=== PATIENT | female | born 2000 | race Caucasian/White ===

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

== ENCOUNTER → 2021-01-28 15:28 | Outpatient (CLI) | payer BC, SELFPAY ==
--- NOTE | ~2021-01-28 | US_ITS ---
US breast LT complete INDICATION: Pulling sensation in left breast TECHNIQUE: Dedicated left breast ultrasound COMPARISON: No prior studies for comparison. FINDINGS: The left breast is composed of normal heterogeneous echotexture without focal solid or cyst ic mass. IMPRESSION: 1: Normal left breast ultrasound. BI-RADS CATEGORY 1 - NEGATIVE Reviewed, dictated and finalized at location A.
== END ==
PROVIDERS: Visit Provider Nurse Practitioner
DX: N64.89 Other specified disorders of breast (principal)
CPT/HCPCS: 76641

== ENCOUNTER 2022-02-23 10:12 | Emergency (ER) | payer BC, SELFPAY ==
--- NOTE | ~2022-02-23 | US_ITS ---
EXAMINATION: US pelvic complete w TV DATE: 02/23/2022 11:44 INDICATION: Uterine bleeding Comparison:No prior studies for comparison. TECHNIQUE: Multiple transabdominal and endovaginal sonographic images of the pelvis performed. FINDINGS: The uterus measures 6.2 x 3.8 x 4.6 cm. The endometrial complex measures 10 mm. Endometrium is heterogeneous. The right ovary measures 2.7 x 1.8 x 1.8 cm and the left ovary measures 2.5 x 1.7 x 1.8 cm. There ar e small follicles in each ovary. Normal doppler signal in both ovaries. There is no free fluid in the pelvis. There are no abnormal masses seen on either side. IMPRESSION: 1. Mildly heterogeneous endometrium measuring 10 mm. Otherwise, unremarkable pelvic ultrasound. Reviewed, dictated and finalized at location B. IMPRESSION: 1. Mildly heterogeneous endometrium measuring 10 mm. Otherwise, unremarkable pe lvic ultrasound.
[2022-02-23 11:00] VITALS: BP 151/87; PULSE 80; RESP 16; TEMP 36.9; O2SAT 98
--- NOTE | 2022-02-23 11:04 | ED.GENADULT ---
HPI - General Adult General Chief complaint: Vaginal Bleeding Stated complaint: heavy menses, abd pain Time Seen by Provider: 02/23/22 10:46 Source: RN notes reviewed History of Present Illness HPI narrative: Patient presents emergency department from home for uterine bleeding. Patient states that she has been having heavy vaginal bleeding for the past 3 days. States she has a history of PCOS and is followed at [facility] states that this bleeding is heavier than normal states is associated with cramping in the lower abdomen she states that she has not taking pain medication today for the symptoms she denies any fevers or chills dizziness shortness of breath or any other symptoms of concern Related Data Home Medications Medication Instructions Recorded Confirmed sertraline 100 mg tablet (Zoloft) 100 mg PO DAILY 02/05/21 02/26/21 lisdexamfetamine 70 mg capsule mg 02/23/22 02/23/22 (Vyvanse) Allergies Allergy/AdvReac Type Severity Reaction Status Date / Time No Known Allergies Allergy Verified 02/23/22 11:08 Review of Systems Review of Systems: Gen.: Denies fevers or chills ENT: Denies congestion Respiratory: Denies shortness of breath or cough CV: Denies chest pain or palpitations GI: Reports lower abdominal pain, denies nausea, emesis or diarrhea see HPI Musculoskeletal: Denies back pain or muscle pain Neuro: Denies numbness, tingling, weakness or focal weakness Skin: Denies rash Except as documented, all other systems reviewed and negative PMFSH Past Medical History Medical History Binge-eating and purging type anorexia nervosa PCOS (polycystic ovarian syndrome) Surgical History Surgical History S/P cholecystectomy S/P ear surgery S/P tonsillectomy Family History Family History Father Diabetes mellitus Grandparent Family history of malignant neoplasm of breast Mother Heart attack Social History Social History Smoking status: Never smoker Alcohol intake: never Exam Narrative: APPEARANCE: No acute distress, nontoxic, resting in bed EYES: EOMI HEENT: Normocephalic, atraumatic, OMM RESPIRATORY: No respiratory distress Clear to auscultation bilaterally with no rhonchi wheezing or rales. CARDIOVASCULAR: Regular rate and rhythm without murmurs rubs or gallops. ABDOMINAL: Soft, nontender, nondistended, no rebound or guarding MUSCULOSKELETAl: Moves all extremities. No clubbing, cyanosis or edema. NEURO: Awake and alert. Following commands, speech normal, no focal deficits SKIN:: Warm, dry. No rashes lesions or abrasions PSYCHIATRIC: Normal affect/mood, Course Course Emergency Course: Discussed with Dr. Saenz presentation and work-up at this time agrees with plan for discharge she recommends the patient be started on TXA 1300 mg 3 times daily for 3 days Discussed with patient results of workup and diagnosis. Discussed need for follow-up with primary care, proper use of medication, and reasons to return to the emergency department. Patient understands and agrees to current treatment plan Vital Signs Vital signs: Vital Signs Temperature 98.5 F 02/23/22 11:00 Pulse Rate 80 02/23/22 11:00 Respiratory Rate 16 02/23/22 11:00 Blood Pressure 151/87 H 02/23/22 11:00 Pulse Oximetry 98 02/23/22 11:00 Oxygen Delivery Room Air 02/23/22 11:00 Temperature 98.5 F 02/23/22 11:00 Pulse Rate 80 02/23/22 11:00 Respiratory Rate 16 02/23/22 11:00 Blood Pressure 151/87 H 02/23/22 11:00 Pulse Oximetry 98 02/23/22 11:00 Oxygen Delivery Room Air 02/23/22 11:00 Medical Decision Making Vital Signs Vital Signs: Vital Signs Temperature 98.5 F 02/23/22 11:00 Pulse Rate 80 02/23/22 11:00 Respiratory Rate 16 02/23/22 11:00 Blood Pr
[2022-02-23] MEDS: KETOROLAC 30 MG/ML VIAL (*BKC) IV PUSH (11:50)
[2022-02-23] MEDS: SODIUM CHLORIDE 0.9% IV 1,000 ML 999 ML IV CONT (11:51)
[2022-02-23 11:53] LABS: Basophils Absolute Auto 0.1 K/mm3 (0.0-0.1); Basophils Percent Auto 1.1 % (0.2-1.2); Eosinophils Absolute Auto 0.1 K/mm3 (0-0.3); Hemoglobin 12.8 g/dL (12.0-15.0); Immature Granulocyte Absolute 0.01 K/mm3 (0.00-0.031); Immature Granulocyte Percent A 0.2 % (0-0.5); Lymphocytes Absolute Auto 2.07 K/mm3 (0.9-3.2); Lymphocytes Percent Auto 32.8 % (18.3-44.2); Mean Corpuscular HGB Conc 30.5 g/dl (32-36); Mean Corpuscular Volume 91.9 fl (80-100); Mean Platelet Volume 11.5 fl (7.4-10.4); Monocytes Absolute Auto 0.3 K/mm3 (0.1-0.6); Monocytes Percent Auto 4.9 % (2.6-8.5); Neutrophils Absolute Auto 3.8 K/mm3 (1.3-6.7); Platelet Count Result 227 k/mm3 (150-375); Red Blood Count 4.57 M/mm3 (4.2-5.4); Red Cell Distribution Width 14.2 % (11.5-14.5); White Blood Count 6.3 K/mm3 (4.5-10.0)
[2022-02-23 12:03] LABS: Alanine Aminotransferase 31 U/L (6-35); Albumin Level 4.3 g/dL (3.5-5.1); Alkaline Phosphatase 69 U/L (38-126); Anion Gap 8 mmol/L (8-16); Aspartate Amino Transferase 28 U/L (14-36); Bilirubin,Total 0.8 mg/dL (0.2-1.3); Blood Urea Nitrogen 12 mg/dL (7-17); Calcium 9.1 mg/dL (8.4-10.2); Carbon Dioxide 27 mmol/L (22-30); Chloride 103 mmol/L (98-107); Estimated CRCL calculation 140 ml/min; Estimated Glomerular Filt Rate > 60; Glucose 98 mg/dL (65-110); Potassium 3.9 mmol/L (3.4-5.0); Sodium 138 mmol/L (137-145)
[2022-02-23 14:01] VITALS: PULSE 84; RESP 16
== END 2022-02-23 14:03 | disposition home or self-care (01) ==
PROVIDERS: Emergency Provider Emergency Medicine
DX: N93.8 Other specified abnormal uterine and vaginal bleeding (principal); E28.2 Polycystic ovarian syndrome
CPT/HCPCS: 36415; 76830; 76856; 80053; 81025; 85025; 96361; 96374; 99284; J1885; J7030

== ENCOUNTER 2024-02-15 13:35 | Emergency (ER) | payer OTHER, SELFPAY ==
--- NOTE | ~2024-02-15 | CT_ITS ---
EXAMINATION: 1. CT facial & cervical spine wo DATE: 02/15/2024 15:25 INDICATION: Head and neck injury TECHNIQUE: 1. Computed tomography (CT) of the maxillofacial region and of the cervical spine were performed with out intravenous contrast. Sagittal and coronal reconstructions of both regions were obtained. Automat ed exposure control and iterative reconstruction technique were employed. The dose-length product was 490.76 mGy-cm. COMPARISON: None. FINDINGS: Maxillofacial CT: No maxillofacial fractures. Specifically the nasal bones, zygomatic arches, mandible and christy of the orbits and paranasal sinuses are all intact. Nasal septum is midline with no fracture. Orbits are no rmal. Paranasal sinuses are clear. Maxillofacial soft tissues are unremarkable. Cervical spine CT: 13 degrees cervicothoracic levocurvature. Straightening of the normal cervical lordosis. Vertebral faina dy and disc heights are normal. No fracture. Cervical facet and uncovertebral joints are unremarkable . Visualized apices of lungs are clear. Cervical soft tissues are unremarkable. IMPRESSION: 1. 13 degrees cervicothoracic levocurvature. Otherwise unremarkable axial facial and cervical spine C T with no acute osseous abnormality. Reviewed, dictated and finalized at location B. IMPRESSION: 1. 13 degrees cervicothoracic levocurvature. Otherwise unremarkable axial facia l and cervical spine CT with no acute osseous abnormality.
--- NOTE | ~2024-02-15 | CT_ITS ---
EXAMINATION: CT brain wo con DATE: 02/15/2024 15:24 INDICATION: Head injury TECHNIQUE: Computed tomography (CT) of the head was performed without intravenous contrast. Sagittal and coronal reconstructions were performed. The mA was adjusted according to patient size. Iterative reconstruction technique was employed. The dose-length product was 681.00 mGy-cm. COMPARISON: None FINDINGS: No fracture. No acute intracranial hemorrhage, acute infarction or abnormal extra axial fluid collect ion. Ventricles are normal and symmetric. No mass/mass effect. The right cerebellar tonsil is low-lyi ng extending 4 mm below level of the foramen magnum. The orbits, paranasal sinuses and mastoid air ce lls are normal. IMPRESSION: 1. No fracture or acute intracranial process. Reviewed, dictated and finalized at location B.
[2024-02-15 13:40] VITALS: BP 147/80; PULSE 74; RESP 17; TEMP 36.6; O2SAT 98
--- NOTE | 2024-02-15 14:58 | ED.FALL ---
HPI - Fall General Chief Complaint: Fall <Ragini Pardo, NIB FINISHER - Last Filed: 02/15/24 15:02> Stated Complaint: fall <Ragini Pardo NIB FINISHER - Last Filed: 02/15/24 15:02> Time Seen by Provider: 02/15/24 14:45 <Ragini Pardo NIB FINISHER - Last Filed: 02/15/24 15:02> Focused HPI: Patient is a 23-year-old presents to ER after a fall last evening. She reports she was walking on rocks last night, slipped, and hit the back her head on concrete. Patient denies loss of consciousness, dizziness, nausea and vomiting. She does endorse throbbing to the back of her head pain in the front of her neck. Patient reports she took aspirin for pain last night and again this morning. She also endorses bruising to her and right upper shoulder area. Patient denies any bleeding, shortness of breath, chest pain. GENERAL: Well-appearing, well-nourished, and in no acute distress. HEAD: Normocephalic, atraumatic. CHEST: Clear to auscultation. ?No respiratory distress. HEART: Regular rate and rhythm.? NEURO: ?Alert and oriented x3. Patient screened in triage and initial orders placed.? ?Additional care and disposition to be based upon?diagnostic testing and treatment. <Ragini Pardo, NIB FINISHER - Last Filed: 02/15/24 15:02> Focused HPI: Patient is a 23-year-old presents to ER after a fall last evening. She reports she was walking on rocks last night, slipped, and hit the back her head on concrete. Patient denies loss of consciousness, dizziness, nausea and vomiting. She does endorse throbbing to the back of her head pain in the front of her neck. Patient reports she took aspirin for pain last night and again this morning. She also endorses bruising to her and right upper shoulder area. Patient denies any bleeding, shortness of breath, chest pain. GENERAL: Well-appearing, well-nourished, and in no acute distress. HEAD: Normocephalic, atraumatic. CHEST: Clear to auscultation. ?No respiratory distress. HEART: Regular rate and rhythm.? NEURO: ?Alert and oriented x3. Patient screened in triage and initial orders placed.? ?Additional care and disposition to be based upon?diagnostic testing and treatment. <Belgica Soriano PA-C - Last Filed: 02/15/24 17:52> Source: patient <ELVIA John Last Filed: 02/15/24 15:02> Mode of arrival: ambulatory <Belgica Soriano PA-C - Last Filed: 02/15/24 17:52> Limitations: no limitations <Belgica Soriano PA-C - Last Filed: 02/15/24 17:52> History of Present Illness HPI Narrative: Agree with above HPI. Denies back or shoulder pain. Denies SOB. <Belgica Soriano PA-C - Last Filed: 02/15/24 17:52> Related Data Home Medications: Home Medications Medication Instructions Recorded Confirmed sertraline 100 mg tablet (Zoloft) 100 mg PO DAILY 02/05/21 02/26/21 lisdexamfetamine 70 mg capsule mg 02/23/22 02/23/22 (Vyvanse) <Ragini Pardo APRN - Last Filed: 02/15/24 15:02> Allergies/Adverse Reactions: Allergies Allergy/AdvReac Type Severity Reaction Status Date / Time No Known Allergies Allergy Verified 02/23/22 11:08 <Ragini Pardo APRN - Last Filed: 02/15/24 15:02> Review of Systems Review of Systems: All systems reviewed & are unremarkable except as noted in HPI. <Belgica Soriano PA-C - Last Filed: 02/15/24 17:52> All systems reviewed & are unremarkable except as noted in HPI and below <Belgica Soriano PA-C - Last Filed: 02/15/24 17:52> PMFSH Past Medical History Medical History: Medical History Binge-eating and purging type anorexia nervosa PCOS (polycystic ovarian syndrome) <Ragini Pardo APRN - Last Filed: 02/15/24 15:02> Surgical History Surgical History: Surgical History S/P cholecystectomy S/P ear surgery S/P tonsi
[2024-02-15 17:38] VITALS: BP 126/80; PULSE 80; RESP 16; TEMP 36.6; O2SAT 100
[2024-02-15 17:59] VITALS: BP 118/68; PULSE 74; RESP 16; TEMP 36.8; O2SAT 100
== END 2024-02-15 18:35 | disposition home or self-care (01) ==
PROVIDERS: Emergency Provider Physician Assistant; PCP Emergency Medicine
DX: S09.90XA Unspecified injury of head, initial encounter (principal); S40.011A Contusion of right shoulder, initial encounter; S16.1XXA Strain of muscle, fascia and tendon at neck level, initial encounter; E28.2 Polycystic ovarian syndrome; E66.9 Obesity, unspecified; Z68.32 Body mass index [BMI] 32.0-32.9, adult; Z90.49 Acquired absence of other specified parts of digestive tract; Z79.899 Other long term (current) drug therapy; W01.0XXA Fall on same level from slipping, tripping and stumbling without subsequent striking against object, initial encounter
CPT/HCPCS: 70450; 70486; 72125; 99284

== ENCOUNTER 2024-04-30 19:44 | Emergency (ER) | payer OTHER, SELFPAY ==
--- NOTE | ~2024-04-30 | US_ITS ---
Limited ABDOMINAL ULTRASOUND Ordering provider: Young Avelar MD History: . epigastric pain, elevated liver enzymes . Comparison: None. FINDINGS: PANCREAS: Normal echotexture and size. PORTAL VEIN: Hepatopedal flow demonstrated. LIVER: Normal size and echotexture. No focal hepatic lesions or perihepatic fluid collections are leatha ntified. BILIARY DUCTS: No intra or extrahepatic biliary dilation. Common bile duct measures 2 mm in diameter which is normal for patient's age. GALLBLADDER: Surgically removed. FREE FLUID: None visualized within the upper abdomen. IMPRESSION: normal Limited abdominal ultrasound. Reviewed, dictated and finalized at location A. ACE [employer]ER
[2024-04-30 19:51] VITALS: BP 149/79; PULSE 98; RESP 16; TEMP 36.6; O2SAT 100
--- NOTE | 2024-04-30 21:13 | ED_ITS ---
HPI - General Adult General Chief complaint: Unspecified Stated complaint: I threw up blood hx bulimia Time Seen by Provider: 04/30/24 20:54 History of Present Illness HPI narrative: Patient 34-year-old female who presents emergency department chief complaint of epigastric pain and nausea vomiting. The patient reports that she has history of bulimia reports that when she was making herself vomit there was a little bit of a blood streak in the emesis. Patient reports that she has epigastric discomfort reports no other localizing tenderness denies fever Related Data Home Medications Medication Instructions Recorded Confirmed sertraline 100 mg tablet (Zoloft) 100 mg PO DAILY 02/05/21 02/26/21 lisdexamfetamine 70 mg capsule mg 02/23/22 02/23/22 (Vyvanse) Allergies Allergy/AdvReac Type Severity Reaction Status Date / Time No Known Allergies Allergy Verified 04/30/24 19:45 Review of Systems Review of Systems: A 10 system review of systems was completed on the patient and is negative except for what is stated in the HPI. Nursing and ancillary documentation was reviewed. [facility] Past Medical History Medical History Binge-eating and purging type anorexia nervosa PCOS (polycystic ovarian syndrome) Surgical History Surgical History S/P cholecystectomy S/P ear surgery S/P tonsillectomy Family History Family History Father Diabetes mellitus Grandparent Family history of malignant neoplasm of breast Mother Heart attack Social History Social History Smoking status: Never smoker Alcohol intake: never Exam Narrative: GENERAL: Well-appearing, well-nourished, and in no acute distress. HEAD: Normocephalic, atraumatic. EYES: PERRLA and EOMI. ENT: Nares clear, no rhinorrhea or epistaxis. Mucous membranes moist. NECK: Supple. CHEST: Clear to auscultation. No respiratory distress. HEART: Regular rate and rhythm. No murmur heard. Normal peripheral pulses. ABDOMEN: Soft, nontender, nondistended, normal active bowel sounds. EXTREMITIES: Normal range of motion. No edema. SKIN: Warm, dry, no rash. NEURO: No focal deficits. Alert and oriented x3. PSYCH: Normal mood and affect. Course Vital Signs Vital signs: Vital Signs Temperature 36.6 C 04/30/24 19:51 Pulse Rate 98 04/30/24 19:51 Respiratory Rate 16 04/30/24 19:51 Blood Pressure 149/79 H 04/30/24 19:51 Pulse Oximetry 100 04/30/24 19:51 Oxygen Delivery Room Air 04/30/24 19:51 Temperature 36.6 C 04/30/24 21:51 Pulse Rate 67 04/30/24 21:51 Respiratory Rate 14 04/30/24 21:51 Blood Pressure 138/65 04/30/24 21:51 Pulse Oximetry 100 04/30/24 21:51 Oxygen Delivery Room Air 04/30/24 19:51 Medical Decision Making MDM Narrative Medical decision making narrative: Differential diagnosis includes electrolyte abnormality, GI bleed, Laboratory studies were obtained on the patient showed a hemoglobin 15.3 electrolytes showed a potassium of 3.8 liver enzymes were slightly elevated with a bilirubin 1.6 AST and ALT were 06/19/2076 respectively urinalysis still pending Ultrasound of the right upper quadrant Vital Signs Vital Signs: Vital Signs Temperature 36.6 C 04/30/24 19:51 Pulse Rate 98 04/30/24 19:51 Respiratory Rate 16 04/30/24 19:51 Blood Pressure 149/79 H 04/30/24 19:51 Pulse Oximetry 100 04/30/24 19:51 Oxygen Delivery Room Air 04/30/24 19:51 Temperature 36.6 C 04/30/24 21:51 Pulse Rate 67 04/30/24 21:51 Respiratory Rate 14 04/30/24 21:51 Blood Pressure 138/65 04/30/24 21:51 Pulse Oximetry 100 04/30/24 21:51 Oxygen Delivery Room Air 04/30/24 19:51 Lab Data 04/30/24 21:19 04/30/24 21:19 Labs: Lab Results 04/30/24 04/30/24 04/30/24 Range/Units 21:19 22:47 22:49 WBC 7.5 (4.5-10.0) K/mm3 RBC 4.74 (4.2-5.4) M/mm3 Hgb 15.3 H (12.0-15.0) g/dL Hct 45.2 (37.0-47.0) % MCV 95.4 (80-100) fl MCH 32.3 (26-34) pg MCHC 33.8 (32-36) g/dl RDW 12.5 (11.5-14.5) % Plt Count 192 (150-375) k/mm3 MPV 12.7 H (7.4-10.4) fl Immature Gran % (Auto) 0.3 (0-0.5) % Neut % (Auto) 61.6 (45.5-73.1) % Lymph % (Auto) 30.1 (18.3-44.2) % [place] % (Auto) 6.0 (2.6-8.5) % Eos % (Auto) 0.8 (0-4.4) % Baso % (Auto) 1.2 (0.2-1.2) % Lymph # (Auto) 2.26 (0.9-3.2) K/mm3 [place] # (Auto) 0.5 (0.1-0.6) K/mm3 Eos # (Auto) 0.1 (0-0.3) K/mm3 Baso # (Auto) 0.1 (0.0-0.1) K/mm3 Abs Immat Gran (auto) 0.02 (0.00-0.031) K/mm3 Absolute Neuts (auto) 4.6 (1.3-6.7) K/mm3 Absolute Nucleated RBC 0.000 (0.0-0.012) K/mm3 Nucleated RBC % 0.0 (0.0-0.2) % Sodium 138 (137-145) mmol/L Potassium 3.8 (3.4-5.0) mmol/L Chloride 103 (98-107) mmol/L Carbon Dioxide 30 (22-30) mmol/L Anion Gap 5 (4-12) mmol/L BUN 18 H (7-17) mg/dL Creatinine 0.80 (0.7-1.0) mg/dL Estim Creat Clear Calc 113 ml/min Estimated GFR > 60 (59 - ) Glucose 109 (65-110) mg/dL Lactic Acid 0.9 (0.7-2.0) mmol/L Calcium 9.6 (8.4-10.2) mg/dL Magnesium 2.3 (1.6-2.3) mg/dL Total Bilirubin 1.6 H (0.2-1.3) mg/dL AST 77 H (14-36) U/L ALT 122 H (6-35) U/L Alkaline Phosphatase 55 (38-126) U/L Total Protein 8.0 (6.3-8.2) g/dL Albumin 5.0 (3.5-5.1) g/dL Lipase 58 (23-300) U/L Urine Color Dark yellow (Yellow) Urine Appearance Turbid H (Clear) Urine pH 8.0 (5.0-9.0) Ur Specific [place] 1.032 (1.001-1.035) Urine Protein 1+ H (Negative) mg/dL Urine Glucose (UA) Negative (Negative) mg/dL Urine Ketones Trace H (Negative) mg/dL Ur Blood (Man) Negative (Negative) Urine Nitrate Negative (Negative) Urine Bilirubin 1+ H (Negative) Urine Urobilinogen 1.0 (<2.0) mg/dL Add Ur Microanalysis Reviewed Leukocyte Esterase Rfl 1+ H (Negative) [place]/UL Urine RBC 0-2 (0-2) /hpf Urine WBC 0-5 (0-3) /hpf Ur Squamous Epith Cells Moderate (Few) /hpf Urine Bacteria 2+ H /hpf Urine Casts 0-2 POC Urine HCG, Qual Negative (Negative) Discharge Plan Discharge Clinical Impression: Nausea and vomiting, Gastritis Patient Disposition: Home, Self-Care Condition: Stable Instructions: Antibiotic Form, Gastritis (ED), Acute Nausea and Vomiting (ED) Prescriptions: New pantoprazole [Protonix] 40 mg tablet,delayed release (DR/EC) 40 mg PO HS 28 Days Qty: 28 0RF ondansetron 4 mg tablet,disintegrating 4 mg PO Q8H PRN (Reason: nausea and vomiting) Qty: 10 0RF No Action sertraline [Zoloft] 100 mg tablet 100 mg PO DAILY Vyvanse 70 mg capsule tranexamic acid 650 mg tablet 1,300 mg PO TID 3 Days Qty: 18 0RF Follow-up/Referrals: Nestor Mckee MD [Primary Care Provider] - Time of Disposition: 23:34
[2024-04-30 21:24] LABS: Basophils Absolute Auto 0.1 K/mm3 (0.0-0.1); Basophils Percent Auto 1.2 % (0.2-1.2); Eosinophils Absolute Auto 0.1 K/mm3 (0-0.3); Eosinophils Percent Auto 0.8 % (0-4.4); Hematocrit 45.2 % (37.0-47.0); Hemoglobin 15.3 g/dL (12.0-15.0); Immature Granulocyte Absolute 0.02 K/mm3 (0.00-0.031); Immature Granulocyte Percent A 0.3 % (0-0.5); Lymphocytes Absolute Auto 2.26 K/mm3 (0.9-3.2); Lymphocytes Percent Auto 30.1 % (18.3-44.2); Mean Corpuscular HGB Conc 33.8 g/dl (32-36); Mean Corpuscular Hemoglobin 32.3 pg (26-34); Mean Corpuscular Volume 95.4 fl (80-100); Mean Platelet Volume 12.7 fl (7.4-10.4); Monocytes Absolute Auto 0.5 K/mm3 (0.1-0.6); Neutrophils Absolute Auto 4.6 K/mm3 (1.3-6.7); Neutrophils Percent Auto 61.6 % (45.5-73.1); Platelet Count Result 192 k/mm3 (150-375); Red Blood Count 4.74 M/mm3 (4.2-5.4); Red Cell Distribution Width 12.5 % (11.5-14.5); White Blood Count 7.5 K/mm3 (4.5-10.0)
[2024-04-30] MEDS: ONDANSETRON INJ 4 MG/2 ML VIAL IV PUSH (21:24)
[2024-04-30] MEDS: SODIUM CHLORIDE 0.9% IV 1,000 ML 999 ML IV CONT (21:24)
[2024-04-30] MEDS: PANTOPRAZOLE SODIUM IV 40 MG VIAL IV PUSH (21:27)
[2024-04-30 21:41] LABS: Lactic Acid Reflex 0.9 mmol/L (0.7-2.0)
[2024-04-30 21:51] VITALS: BP 138/65; PULSE 67; RESP 14; TEMP 36.6; O2SAT 100
[2024-04-30 21:55] LABS: Alanine Aminotransferase 122 U/L (6-35); Alkaline Phosphatase 55 U/L (38-126); Anion Gap 5 mmol/L (4-12); Aspartate Amino Transferase 77 U/L (14-36); Bilirubin,Total 1.6 mg/dL (0.2-1.3); Blood Urea Nitrogen 18 mg/dL (7-17); Calcium 9.6 mg/dL (8.4-10.2); Carbon Dioxide 30 mmol/L (22-30); Chloride 103 mmol/L (98-107); Estimated CRCL calculation 113 ml/min; Estimated Glomerular Filt Rate > 60; Glucose 109 mg/dL (65-110); Lipase 58 U/L (23-300); Magnesium 2.3 mg/dL (1.6-2.3); Potassium 3.8 mmol/L (3.4-5.0); Sodium 138 mmol/L (137-145)
[2024-04-30 22:51] LABS: BEDSIDEPREGUCG Negative (Negative)
[2024-04-30 23:10] LABS: Add Urine Microscopic? YES; Appearance Urine Turbid (Clear); Bacteria Urine 2+ /hpf; Bilirubin Urine 1+ (Negative); Blood Urine Negative (Negative); Color Urine Dark Yellow (Yellow); Glucose Urine UA Negative (Negative); Ketones Urine Trace mg/dL (Negative); Leukocyte Esterase Ur 1+ LEU/UL (Negative); Need Manual Microscopic Reviewed; Nitrate Urine Negative (Negative); Non Pathogenic Casts 0-2; Protein Urine 1+ mg/dL (Negative); RBC Urine 0-2 /hpf (0-2); Specific Grav Ur 1.032 (1.001-1.035); Squamous Epithelial Cell Urine Moderate /hpf (Few); WBC Urine 0-5 /hpf (0-3)
[2024-04-30 23:48] VITALS: BP 134/62; PULSE 63; RESP 12; O2SAT 99
[2024-04-30 23:49] VITALS: BP 134/62; PULSE 63; RESP 12; O2SAT 99
== END 2024-04-30 23:51 | disposition home or self-care (01) ==
PROVIDERS: Emergency Provider Emergency Medicine; PCP Emergency Medicine
DX: K29.70 Gastritis, unspecified, without bleeding (principal); R11.2 Nausea with vomiting, unspecified; R82.998 Other abnormal findings in urine; F50.029 Anorexia nervosa, binge eating/purging type, unspecified; Z68.30 Body mass index [BMI] 30.0-30.9, adult
CPT/HCPCS: 36415; 76705; 80053; 81001; 81025; 83605; 83690; 83735; 85025; 87086; 96361; 96374; 96375; 99284; J2405; J2470; J7030